=== PATIENT | female | born 1960 | race Caucasian/White ===

== ENCOUNTER → 2021-09-25 08:24 | Outpatient (CLI) | payer OTHER, SELFPAY ==
--- NOTE | ~2021-09-25 | MM_ITS ---
EXAMINATION: MM screening [facility] BI w [facility] HISTORY: Screening mammogram TECHNIQUE: Craniocaudal and mediolateral oblique 3-D tomosynthesis images were obtained and synthetic 2-D images were generated. CAD analysis was submitted and interpreted. COMPARISON: No prior mammogram is available for comparison at this institution. BREAST PARENCHYMAL COMPOSITION: The breasts are extremely dense, which lowers the sensitivity of mamm ography. FINDINGS: There is no evidence of suspicious mass, calcification, or architectural distortion to sugg est malignancy in either breast. IMPRESSION: 1. No mammographic evidence of malignancy. 2. Recommend routine screening mammography in one year. BI-RADS Category 1: Negative Reviewed, dictated and finalized at location [facility] [employer]
== END ==
PROVIDERS: Visit Provider Obstetrics & Gynecology
DX: Z12.31 Encounter for screening mammogram for malignant neoplasm of breast (principal)
CPT/HCPCS: 77063; 77067

== ENCOUNTER 2022-09-18 09:28 | Emergency (ER) | payer OTHER, SELFPAY ==
--- NOTE | ~2022-09-18 | CT_ITS ---
EXAMINATION: CT abdomen pelvis wo con DATE: 09/18/2022 10:27 INDICATION: Right flank pain and vomiting TECHNIQUE: Computed tomography (CT) of the abdomen and pelvis was performed without intravenous contr ast. Automated exposure control and iterative reconstruction technique were employed. The dose-length product was 315.96 mGy-cm. COMPARISON: 05/06/14 FINDINGS: Lung bases are clear. Heart size is normal. No pericardial or pleural effusion. Moderate-sized slidin g-type hiatal hernia. Bilateral breast implants. Liver, gallbladder, spleen, pancreas and bilateral a drenal glands are normal. Kidneys and ureters are normal with no urolithiasis, hydroureteronephrosis or perinephric/ureteral stranding. There are few phleboliths in the pelvis. Bowels including the appe ndix are normal. Bladder, uterus and bilateral adnexa are unremarkable. No free intraperitoneal gas o r fluid. No pathologically enlarged abdominal or pelvic lymphadenopathy. Small fat-containing umbilic al and paraumbilical hernias. Mild lumbar dextrocurvature with moderate spondylosis. IMPRESSION: 1. No urolithiasis or acute intra-abdominal/pelvic process. Line 2. Moderate-sized sliding-type hiatal hernia. Reviewed, dictated and finalized at location A. [employer]
[2022-09-18 09:29] VITALS: BP 139/99; PULSE 80; RESP 16; TEMP 37.1; O2SAT 98
[2022-09-18 09:56] LABS: Basophils Percent Auto 0.2 % (0.2-1.2); Hematocrit 44.6 % (37.0-47.0); Hemoglobin 14.7 g/dL (12.0-15.0); Immature Granulocyte Absolute 0.04 K/mm3 (0.00-0.031); Immature Granulocyte Percent A 0.4 % (0-0.5); Lymphocytes Absolute Auto 1.76 K/mm3 (0.9-3.2); Lymphocytes Percent Auto 16.9 % (18.3-44.2); Mean Corpuscular Hemoglobin 27.8 pg (26-34); Mean Corpuscular Volume 84.3 fl (80-100); Mean Platelet Volume 8.8 fl (7.4-10.4); Monocytes Absolute Auto 1.3 K/mm3 (0.1-0.6); Monocytes Percent Auto 12.7 % (2.6-8.5); Neutrophils Absolute Auto 7.3 K/mm3 (1.3-6.7); Neutrophils Percent Auto 69.8 % (45.5-73.1); Platelet Count Result 226 k/mm3 (150-375); Red Blood Count 5.29 M/mm3 (4.2-5.4); White Blood Count 10.4 K/mm3 (4.5-10.0)
[2022-09-18 09:57] LABS: Add Urine Microscopic? YES; Appearance Urine Clear (Clear); Bilirubin Urine Negative (Negative); Blood Urine 2+ (Negative); Color Urine Yellow (Yellow); Glucose Urine UA Negative (Negative); Ketones Urine 3+ mg/dL (Negative); Leukocyte Esterase Ur Negative LEU/UL (Negative); Nitrate Urine Negative (Negative); Protein Urine 2+ mg/dL (Negative); Specific Grav Ur >= 1.030 (1.001-1.035); Urobilinogen Urine 0.2 mg/dL (<2.0)
[2022-09-18 10:09] LABS: Alanine Aminotransferase 60 U/L (6-35); Albumin Level 4.4 g/dL (3.5-5.1); Alkaline Phosphatase 63 U/L (38-126); Anion Gap 9 mmol/L (8-16); Aspartate Amino Transferase 60 U/L (14-36); Bilirubin,Total 0.4 mg/dL (0.2-1.3); Blood Urea Nitrogen 16 mg/dL (7-17); Calcium 8.9 mg/dL (8.4-10.2); Carbon Dioxide 29 mmol/L (22-30); Chloride 95 mmol/L (98-107); Estimated CRCL calculation 60 ml/min; Estimated Glomerular Filt Rate > 60; Glucose 120 mg/dL (65-110); Lipase 59 U/L (23-300); Potassium 4.1 mmol/L (3.4-5.0); Sodium 133 mmol/L (137-145)
--- NOTE | 2022-09-18 10:16 | ED.GENADULT ---
HPI - General Adult General Chief complaint: Back Pain/Injury Stated complaint: R flank pain Time Seen by Provider: 09/18/22 09:45 History of Present Illness HPI narrative: Patient is a 62-year-old female presenting with flank pain. Patient states that she was recently diagnosed with influenza and she has been recovering at home all week. States that a couple days ago she developed some right-sided flank pain that she attributed to laying on her side for too long. Unfortunately, the pain has continued and has worsened so she came in for evaluation. Patient became nauseated and had an episode of vomiting upon arrival. Currently, she states that the nausea is better but still has a lot of pain in her right flank. She denies recent fevers, headache, chest pain, shortness of breath, lightheadedness, abdominal pain, diarrhea, dysuria, hematuria. Related Data Home Medications Medication Instructions Recorded Confirmed benzonatate 100 mg capsule mg PO 09/18/22 prednisone 20 mg tablet mg 09/18/22 progesterone micronized 100 mg mg 09/18/22 capsule Allergies Allergy/AdvReac Type Severity Reaction Status Date / Time hydromorphone Allergy Unknown Itching Verified 09/18/22 12:28 Review of Systems Review of Systems: All systems reviewed & are unremarkable except as noted in HPI and below PMFSH Social History Social History Smoking status: Never smoker Exam Narrative: GENERAL: Uncomfortable appearing, cooperative, pleasant HEAD: Normocephalic, atraumatic. EYES: PERRLA and EOMI. ENT: Nares clear, no rhinorrhea or epistaxis. Mucous membranes moist. NECK: Supple. CHEST: Clear to auscultation. No respiratory distress. HEART: Regular rate and rhythm. No murmur heard. Normal peripheral pulses. ABDOMEN: Soft, nontender, nondistended, normal active bowel sounds. + Right CVA tenderness EXTREMITIES: Normal range of motion. No edema. SKIN: Warm, dry, no rash. NEURO: No focal deficits. Alert and oriented x3. PSYCH: Normal mood and affect. Course Vital Signs Vital signs: Vital Signs Temperature 98.7 F 09/18/22 09:29 Pulse Rate 80 09/18/22 09:29 Respiratory Rate 16 09/18/22 09:29 Blood Pressure 139/99 H 09/18/22 09:29 Pulse Oximetry 98 09/18/22 09:29 Oxygen Delivery Room Air 09/18/22 09:29 Temperature 98.7 F 09/18/22 09:29 Pulse Rate 83 09/18/22 15:22 Respiratory Rate 16 09/18/22 15:22 Blood Pressure 119/78 09/18/22 15:22 Pulse Oximetry 98 09/18/22 15:22 Oxygen Delivery Room Air 09/18/22 09:29 Medical Decision Making MDM Narrative Medical decision making narrative: Patient is a 62-year-old female presenting with right flank pain. Vitals are within normal limits. Exam is remarkable for the above. UA is remarkable for positive RBCs. Blood work is otherwise unremarkable. Normal electrolytes and renal function. Very mild leukocytosis. CT abdomen pelvis shows no acute abnormalities. Unclear why there are RBCs in her UA. It's possible that she recently passed a stone. Advised that she follow-up with urology as well as primary care. Recommended Tylenol and ibuprofen for pain control. Appropriate return precautions given. Patient voiced understanding and is agreeable with plan. Discharged in stable condition. Vital Signs Vital Signs: Vital Signs Temperature 98.7 F 09/18/22 09:29 Pulse Rate 80 09/18/22 09:29 Respiratory Rate 16 09/18/22 09:29 Blood Pressure 139/99 H 09/18/22 09:29 Pulse Oximetry 98 09/18/22 09:29 Oxygen Delivery Room Air 09/18/22 09:29 Temperature 98.7 F 09/18/22 09:29 Pulse Rate 83 09/18/22 15:22 Respiratory Rate 16 09/18/22 15:22 Blood Pressure 119/78 09/18/22 15:22 Pulse Oximetry 98 09/18/22 15:22 Oxygen Delivery Room Air 09/18/22 09:29 Lab Data 09/18/22 09:49 09/18/22 09:49 Labs: Lab Results 09/18/22
[2022-09-18 10:19] LABS: Mucus Urine Rare /lpf; RBC Urine 21-50 /hpf (0-2); Squamous Epithelial Cell Urine Few /hpf (Few)
[2022-09-18] MEDS: SODIUM CHLORIDE 0.9% IV 1,000 ML 999 ML IV CONT (11:03)
[2022-09-18] MEDS: oxyCODONE HCL (*CRX) 5 MG TAB IR PO (12:53)
[2022-09-18] MEDS: KETOROLAC 30 MG/ML VIAL (*BKC) IV PUSH (12:53)
[2022-09-18 15:22] VITALS: BP 119/78; PULSE 83; RESP 16; O2SAT 98
== END 2022-09-18 15:30 | disposition home or self-care (01) ==
PROVIDERS: Emergency Provider Emergency Medicine
DX: J11.2 Influenza due to unidentified influenza virus with gastrointestinal manifestations (principal); R10.9 Unspecified abdominal pain
CPT/HCPCS: 36415; 74176; 80053; 81001; 83690; 85025; 96365; 96375; 99284; A9270; J0131; J1885; J7030